=== PATIENT | female | born 1985 | race Caucasian/White ===

== ENCOUNTER 2016-05-06 09:49 | Emergency (ER) | payer MEDICAID ==
[~2016-05-06] VITALS: Ht 160 cm; Wt 100.0 kg
[~2016-05-06 09:49] MED LIST: SULF-154 PO; Z.0.NO CURRENT MEDS
[2016-05-06 09:51] VITALS: BP 124/78; PULSE 76; RESP 20; TEMP 97.6; O2SAT 97
--- NOTE | 2016-05-06 11:27 | PD ---
HPI Chief Complaint: Back/ Neck Pain or Injury Time Seen by Provider: 11:27 Travel History International Travel<30 days: No Contact w/Intl Traveler<30days: No Traveled to known affect area: No History of Present Illness HPI Interpretation services utilized. 31 year old female with no significant medical history, presents to emergency department for evaluation of lower right sided abdominal pain radiating into her suprapubic area. She is also having right lower back pain that radiates into her right leg.. She denies any injury. Denies any saddle paresthesia, loss of bowel or bladder, lower extremely weakness. No recent illnesses, fever , or chills. Patient's last menstrual cycle was April 11, 2016. Denies any current vaginal bleeding or discharge. Nausea without vomiting. No chest pain or tightness. No difficulty breathing. No other symptoms to report. PFSH Past Medical History Medical History: Denies Significant Hx Diminished Hearing: No ?: Not LMP: 04/11/16 : 1 Para: 1 Past Surgical History Section: Yes (x 1) Gynecologic Surgery: Yes (C-SEC) Social History Alcohol Use: No Tobacco Use: No Substance Use: No Allergies-Medications (Allergen,Severity, Reaction): Coded Allergies: No Known Allergies (Unverified , 01/17/12) Reported Meds & Prescriptions Reported Meds & Active Scripts Active Ibuprofen 800 Mg Tab 800 Mg PO Q8H PRN Doxycycline Hyclate 100 Mg Tab 100 Mg PO BID 14 Days Flagyl (Metronidazole) 500 Mg Tab 500 Mg PO BID 14 Days Review of Systems Except as stated in HPI: all other systems reviewed are Neg Physical Exam Narrative GENERAL: Well-nourished female patient, ambulatory with a nonantalgic gait, no acute distress SKIN: Warm and dry. HEAD: Atraumatic. Normocephalic. EYES: Pupils equal and round. No scleral icterus. No injection or drainage. ENT: No nasal bleeding or discharge. Mucous membranes pink and moist. NECK: Trachea midline. No JVD. CARDIOVASCULAR: Regular rate and rhythm. No murmur appreciated. RESPIRATORY: No accessory muscle use. Clear to auscultation. Breath sounds equal bilaterally. GASTROINTESTINAL: Abdomen soft, non distended. Suprapubic and RLQ tenderness to palpation. No rebound tenderness. No guarding. Hepatic and splenic margins not palpable. GENITOURINARY: Normal external genitalia without lesions or erythema. Vaginal vault without blood. There is milky white drainage. Cervical os was closed. + cervical motion tenderness. Uterus nontender and nonenlarged. Bilateral adnexa nontender without masses. MUSCULOSKELETAL: No obvious deformities. No clubbing. No cyanosis. No edema. No midline spinal tenderness. Equal strength bilateral lower extremities. Sensation intact distal extremity. NEUROLOGICAL: Awake and alert. No obvious cranial nerve deficits. Motor grossly within normal limits. Normal speech. Data Data Last Documented VS Vital Signs Date Time Temp Pulse Resp B/P Pulse Ox O2 Delivery O2 Flow Rate FiO2 05/06/16 13:00 70 14 118/54 100 Room Air 05/06/16 09:51 97.6 Orders Complete Blood Count With Diff (05/06/16 12:00) Comprehensive Metabolic Panel (05/06/16 12:00) Lipase (05/06/16 12:00) Prothrombin Time / Inr (Pt) (05/06/16 12:00) Act Partial Throm Time (Ptt) (05/06/16 12:00) Urinalysis - C+S If Indicated (05/06/16 12:00) Iv Access Insert/Monitor (05/06/16 12:00) Ecg Monitoring (05/06/16 12:00) Oximetry (05/06/16 12:00) Sodium Chlor 0.9% 1000 Ml Inj (Ns 1000 M (05/06/16 12:00) Sodium Chloride 0.9% Flush (Ns Flush) (05/06/16 12:00) Ed Urine Pregnancytest Poc (05/06/16 12:00) Gc And Chlamydia Pcr (05/06/16 12:00) Wet Prep Profile (05/06/16 12:03) Ct Abd/Pel W Iv Contrast(Rout) (05/06/16 ) Ketorolac Inj (Toradol Inj) (05/06/16 12:30) Sodium Chlor 0.9% 1000 Ml Inj (Ns 1000 M (05/06/16 12:30) Ceftriaxone Inj (Rocephin Inj) (05/06/16 12:30) Azithromycin (Zithromax) (05/06/16 12:30) Iohexol 350 Inj (Omnipaque 350 Inj) (05/06/16 13:47) Labs Laboratory Tests Test 05/06/16 05/06/16 05/06/16 10:44 11:00 12:20 White Blood Count 9.3 TH/MM3 Red Blood Count 4.77 MIL/MM3 Hemoglobin 13.6 GM/DL Hematocrit 40.1 % Mean Corpuscular Volume 84.1 FL Mean Corpuscular Hemoglobin 28.6 PG Mean Corpuscular Hemoglobin 34.0 % Concent Red Cell Distribution Width 13.8 % Platelet Count 243 TH/MM3 Mean Platelet Volume 10.4 FL Neutrophils (%) (Auto) 60.7 % Lymphocytes (%) (Auto) 29.7 % Monocytes (%) (Auto) 6.5 % Eosinophils (%) (Auto) 2.7 % Basophils (%) (Auto) 0.4 % Neutrophils # (Auto) 5.6 TH/MM3 Lymphocytes # (Auto) 2.8 TH/MM3 Monocytes # (Auto) 0.6 TH/MM3 Eosinophils # (Auto) 0.2 TH/MM3 Basophils # (Auto) 0.0 TH/MM3 CBC Comment DIFF FINAL Differential Comment Prothrombin Time 11.5 SEC Prothromb Time International 1.0 RATIO Ratio Activated Partial 28.1 SEC Thromboplast Time Sodium Level 137 MEQ/L Potassium Level 4.0 MEQ/L Chloride Level 105 MEQ/L Carbon Dioxide Level 25.7 MEQ/L Anion Gap 6 MEQ/L Blood Urea Nitrogen 9 MG/DL Creatinine 0.55 MG/DL Estimat Glomerular Filtration 131 ML/MIN Rate Random Glucose 89 MG/DL Calcium Level 8.8 MG/DL Total Bilirubin 0.3 MG/DL Aspartate Amino Transf 24 U/L (AST/SGOT) Alanine Aminotransferase 52 U/L (ALT/SGPT) Alkaline Phosphatase 108 U/L Total Protein 7.9 GM/DL Albumin 3.8 GM/DL Lipase 109 U/L Urine Color YELLOW Urine Turbidity CLOUDY Urine pH 7.0 Urine Specific [place] 1.023 Urine Protein NEG mg/dL Urine Glucose (UA) NEG mg/dL Urine Ketones NEG mg/dL Urine Occult Blood NEG Urine Nitrite NEG Urine Bilirubin NEG Urine Urobilinogen LESS THAN 2.0 MG/DL Urine Leukocyte Esterase TRACE Urine RBC 2 /hpf Urine WBC 4 /hpf Urine Squamous Epithelial 20 /hpf Cells Urine Calcium Oxalate Crystals MANY /hpf Urine Amorphous Sediment MOD Urine Bacteria OCC /hpf Urine Mucus FEW /lpf Microscopic Urinalysis Comment CULT NOT INDICATED Chlamydia trachomatis DNA NOT DETECTED (PCR) Neisseria gonorrhoeae DNA NOT DETECTED (PCR) Clue Cells (Wet Prep) NONE SEEN Vaginal Trichomonas (Wet Prep) NONE SEEN Vaginal Yeast (Wet Prep) NONE SEEN MDM Medical Decision Making Medical Screen Exam Complete: Yes Emergency Medical Condition: Yes Medical Record Reviewed: Yes Differential Diagnosis PID vs STD vs UTI vs Appendicitis vs colitis vs muscle spasm/ strain Narrative Course 31 year old female presents to the ED for evaluation. Interpretation services are utilized. Pt appears well. RLQ and suprapubic tenderness to evaluation. Milky white drainage in vaginal vault with + CMT. Laboratory Tests Test 05/06/16 05/06/16 05/06/16 10:44 11:00 12:20 White Blood Count 9.3 TH/MM3 Red Blood Count 4.77 MIL/MM3 Hemoglobin 13.6 GM/DL Hematocrit 40.1 % Mean Corpuscular Volume 84.1 FL Mean Corpuscular Hemoglobin 28.6 PG Mean Corpuscular Hemoglobin 34.0 % Concent Red Cell Distribution Width 13.8 % Platelet Count 243 TH/MM3 Mean Platelet Volume 10.4 FL Neutrophils (%) (Auto) 60.7 % Lymphocytes (%) (Auto) 29.7 % Monocytes (%) (Auto) 6.5 % Eosinophils (%) (Auto) 2.7 % Basophils (%) (Auto) 0.4 % Neutrophils # (Auto) 5.6 TH/MM3 Lymphocytes # (Auto) 2.8 TH/MM3 Monocytes # (Auto) 0.6 TH/MM3 Eosinophils # (Auto) 0.2 TH/MM3 Basophils # (Auto) 0.0 TH/MM3 CBC Comment DIFF FINAL Differential Comment Prothrombin Time 11.5 SEC Prothromb Time International 1.0 RATIO Ratio Activated Partial 28.1 SEC Thromboplast Time Sodium Level 137 MEQ/L Potassium Level 4.0 MEQ/L Chloride Level 105 MEQ/L Carbon Dioxide Level 25.7 MEQ/L Anion Gap 6 MEQ/L Blood Urea Nitrogen 9 MG/DL Creatinine 0.55 MG/DL Estimat Glomerular Filtration 131 ML/MIN Rate Random Glucose 89 MG/DL Calcium Level 8.8 MG/DL Total Bilirubin 0.3 MG/DL Aspartate Amino Transf 24 U/L (AST/SGOT) Alanine Aminotransferase 52 U/L (ALT/SGPT) Alkaline Phosphatase 108 U/L Total Protein 7.9 GM/DL Albumin 3.8 GM/DL Lipase 109 U/L Urine Color YELLOW Urine Turbidity CLOUDY Urine pH 7.0 Urine Specific [place] 1.023 Urine Protein NEG mg/dL Urine Glucose (UA) NEG mg/dL Urine Ketones NEG mg/dL Urine Occult Blood NEG Urine Nitrite NEG Urine Bilirubin NEG Urine Urobilinogen LESS THAN 2.0 MG/DL Urine Leukocyte Esterase TRACE Urine RBC 2 /hpf Urine WBC 4 /hpf Urine Squamous Epithelial 20 /hpf Cells Urine Calcium Oxalate Crystals MANY /hpf Urine Amorphous Sediment MOD Urine Bacteria OCC /hpf Urine Mucus FEW /lpf Microscopic Urinalysis Comment CULT NOT INDICATED Chlamydia trachomatis DNA NOT DETECTED (PCR) Neisseria gonorrhoeae DNA NOT DETECTED (PCR) Clue Cells (Wet Prep) NONE SEEN Vaginal Trichomonas (Wet Prep) NONE SEEN Vaginal Yeast (Wet Prep) NONE SEEN Last Impressions Abdomen/Pelvis CT 05/06/16 0000 Signed Impressions: Service Date/Time: Friday, May 06, 2016 13:30 - CONCLUSION: Unremarkable exam for patient's age. Harvey Hardy MD Labs and imaging studies are reviewed with my attending physician Dr. Mcdonnell. She has also assessed the pt. GC PCR pending. Pt treated empirically. Will be treated for cervicitis/PID. Discharge instructions provided. Diagnosis Primary Impression: Cervicitis Additional Impressions: PID (acute pelvic inflammatory disease) Low back pain Qualified Code: M54.41 - Bilateral low back pain with right-sided sciatica, unspecified chronicity Referrals: Controls Project Engineer Primary Care Physician Patient Instructions: General Instructions, Pelvic Inflammatory Disease (ED) Additional Instructions: Follow-up with a primary care provider Seek gynecology evaluation Condom prophylaxis is recommended Return immediately with any acute worsening of symptoms Med/Other Pt SpecificInfo: Prescription(s) given Scripts Ibuprofen 800 Mg [id number] Mg PO Q8H PRN (Pain/Inflammation) #30 TAB Ref 0 Prov:Kay Hanson 05/06/16 Doxycycline Hyclate 100 Mg [id number] Mg PO BID 14 Days Prov:Kay Hanson 05/06/16 Metronidazole (Flagyl)500 Mg [id number] Mg PO BID 14 Days Ref 0 Prov:HansonKay DE JESUS 05/06/16 Disposition: 01 DISCHARGE HOME Condition: Stable Kay Hanson May 06, 2016 11:27
[2016-05-06 11:42] VITALS: BP 118/77; PULSE 62; RESP 16; O2SAT 99
[2016-05-06 12:00] VITALS: BP 128/76; PULSE 70; RESP 22; O2SAT 98
[2016-05-06] MEDS ORDERED: SODIUM CHLOR 0.9% 1000 ML INJ 1,000 ML IV SCH (12:00)
[2016-05-06] MEDS ORDERED: SODIUM CHLORIDE 0.9% FLUSH 5 ML FLUSH IVF PRN (12:00)
[2016-05-06 12:04] VITALS: O2SAT 99
[2016-05-06] MEDS ORDERED: cefTRIAXone 250 MG VIAL IM ONE (12:30)
[2016-05-06] MEDS ORDERED: KETOROLAC TROMETHAMINE 30 MG/ML (IVP) VIAL IV PUSH ONE (12:30)
[2016-05-06] MEDS ORDERED: AZITHROMYCIN 250 MG TAB PO ONE (12:30)
[2016-05-06] MEDS ORDERED: SODIUM CHLOR 0.9% 1000 ML INJ 1,000 ML IV ONE (12:30)
[2016-05-06 12:44] LABS: AUTOMATED NEUTROPHIL # 5.6 TH/MM3 (1.8-7.7); BASOPHIL % 0.4 % (0.0-2.0); EOSINOPHIL # 0.2 TH/MM3 (0-0.4); EOSINOPHIL % 2.7 % (0.0-4.0); HEMATOCRIT 40.1 % (35.0-46.0); HEMO FLAGS DIFF FINAL; LYMPH % 29.7 % (9.0-44.0); LYMPHOCYTE # 2.8 TH/MM3 (1.0-4.8); MEAN CELL VOLUME 84.1 FL (80.0-100.0); MEAN CORPUSCULAR HEMOGLOBIN 28.6 PG (27.0-34.0); MONO % 6.5 % (0.0-8.0); NEUT % 60.7 % (16.0-70.0); PLATELET COUNT 243 TH/MM3 (150-450); RED BLOOD COUNT 4.77 MIL/MM3 (4.00-5.30); RED CELL DISTRIBUTION WIDTH 13.8 % (11.6-17.2); WHITE BLOOD COUNT 9.3 TH/MM3 (4.0-11.0)
[2016-05-06 12:57] LABS: APTT (PATIENT) 28.1 SEC (24.3-30.1); PROTHROMBIN TIME - PATIENT 11.5 SEC (9.8-11.6)
[2016-05-06 12:59] LABS: ANION GAP 6 MEQ/L (5-15); AST (GOT) 24 U/L (15-37); BICARBONATE 25.7 MEQ/L (21.0-32.0); BLOOD UREA NITROGEN 9 MG/DL (7-18); CHLORIDE 105 MEQ/L (98-107); GLOMERULAR FILTRATION RATE 131 ML/MIN (>89); SODIUM (NA) 137 MEQ/L (136-145)
[2016-05-06 13:00] VITALS: BP 118/54; PULSE 70; RESP 14; O2SAT 100
[2016-05-06 13:01] LABS: BACTERIA, URINE OCC /hpf; BLOOD, URINE NEG (NEG); CALCIUM OXALATE CRYSTALS,URINE MANY /hpf; GLUCOSE,URINE NEG (NEG); KETONE, URINE NEG (NEG); MUCUS URINE FEW /lpf (OCC); NITRITE,URINE NEG (NEG); SQUAMOUS EPITHELIAL CELL URINE 20 /hpf (0-5); URINE COLOR YELLOW (YELLW/STRAW)
[2016-05-06 13:02] LABS: ALKALINE PHOSPHATASE 108 U/L (45-117); ALT (GPT) 52 U/L (10-53); TOTAL BILIRUBIN ADULT 0.3 MG/DL (0.2-1.0)
[2016-05-06 13:02] LABS: COMMENT (UR) CULT NOT INDICATED; CULTURE IF INDICATED CULT NOT INDICATED
[2016-05-06] MEDS ORDERED: IOHEXOL 350 MG/ML 10 ML VIAL (for RAD DIAG) IV ONE (13:47)
--- NOTE | 2016-05-06 13:59 | RADRPT ---
EXAM DATE/TIME: 05/06/2016 13:30 [facility] COMPARISON: No previous studies available for comparison. INDICATIONS : Abdomen pain. IV CONTRAST: 90 cc Omnipaque 350 (iohexol) IV ORAL CONTRAST: No oral contrast ingested. RADIATION DOSE: 11.37 CTDIvol (mGy) MEDICAL HISTORY : None SURGICAL HISTORY : None. ENCOUNTER: Initial ACUITY: 1 day PAIN SCALE: 5/10 LOCATION: Bilateral abdomen. TECHNIQUE: Volumetric scanning of the abdomen and pelvis was performed. Using automated exposure control and ad justment of the mA and/or kV according to patient size, radiation dose was kept as low as reasonably achievable to obtain optimal diagnostic quality images. FINDINGS: LOWER LUNGS: The visualized lower lungs are clear. LIVER: Homogeneous density without lesion. There is no dilation of the biliary tree. No calcified gallston es. SPLEEN: Normal size without lesion. PANCREAS: Within normal limits. KIDNEYS: Normal in size and shape. There is no mass, stone or hydronephrosis. ADRENAL GLANDS: Within normal limits. VASCULAR: There is no aortic aneurysm. BOWEL/MESENTERY: The stomach, small bowel, and colon demonstrate no acute abnormality. There is no free intraperitone al air or fluid. The appendix is unremarkable. There is stool throughout the colon. No inflammatory c hanges are demonstrated. ABDOMINAL WALL: Within normal limits. RETROPERITONEUM: There is no lymphadenopathy. BLADDER: No wall thickening or mass. REPRODUCTIVE: Within normal limits. INGUINAL: There is no lymphadenopathy or hernia. MUSCULOSKELETAL: Within normal limits for patient age. CONCLUSION: Unremarkable exam for patient's age. Harvey Hardy MD on May 06, 2016 at 13:55 Board Certified Radiologist. This report was verified electronically.
[2016-05-06] MEDS ORDERED: DOXY100T PO (14:10)
[2016-05-06] MEDS ORDERED: METR-1 PO (14:10)
[2016-05-06] MEDS ORDERED: IBUP800T23 PO (14:12)
--- NOTE | 2016-05-06 15:10 | PD ---
Physical Exam Date Seen by Provider: May 06, 2016 Time Seen by Provider: 12:30 Narrative I, Dr. Bender, have reviewed the advance practice practitioner's documentation and am in agreement, met with the patient face to face, made the diagnosis, and the medical decision making was done by me. *My assessment and Findings: Patient seen and evaluated with nurse practitioner , please see previous note for further information. Patient is here with lower abdominal pain more right sided. Abdomen is tender to palpation in the right lower quadrant. Pelvic exam is indicative of cervicitis. Pulmonary and heart exam is unremarkable. Cultures were done. IV antibiotics and by mouth antibiotic was given. CT did not reveal any signs of acute intra-abdominal processes otherwise. At this point, patient is released with further by mouth antibiotic and follow-up. Return for any worsening in symptoms as needed. Data Data Last Documented VS Vital Signs Date Time Temp Pulse Resp B/P Pulse Ox O2 Delivery O2 Flow Rate FiO2 05/06/16 12:04 99 Room Air 05/06/16 11:42 62 16 118/77 05/06/16 09:51 97.6 Orders Complete Blood Count With Diff (05/06/16 12:00) Comprehensive Metabolic Panel (05/06/16 12:00) Lipase (05/06/16 12:00) Prothrombin Time / Inr (Pt) (05/06/16 12:00) Act Partial Throm Time (Ptt) (05/06/16 12:00) Urinalysis - C+S If Indicated (05/06/16 12:00) Iv Access Insert/Monitor (05/06/16 12:00) Ecg Monitoring (05/06/16 12:00) Oximetry (05/06/16 12:00) Sodium Chlor 0.9% 1000 Ml Inj (Ns 1000 M (05/06/16 12:00) Sodium Chloride 0.9% Flush (Ns Flush) (05/06/16 12:00) Ed Urine Pregnancytest Poc (05/06/16 12:00) Gc And Chlamydia Pcr (05/06/16 12:00) Wet Prep Profile (05/06/16 12:03) Ct Abd/Pel W Iv Contrast(Rout) (05/06/16 ) Ketorolac Inj (Toradol Inj) (05/06/16 12:30) Sodium Chlor 0.9% 1000 Ml Inj (Ns 1000 M (05/06/16 12:30) Ceftriaxone Inj (Rocephin Inj) (05/06/16 12:30) Azithromycin (Zithromax) (05/06/16 12:30) Iohexol 350 Inj (Omnipaque 350 Inj) (05/06/16 13:47) Labs Laboratory Tests Test 05/06/16 05/06/16 05/06/16 10:44 11:00 12:20 White Blood Count 9.3 TH/MM3 Red Blood Count 4.77 MIL/MM3 Hemoglobin 13.6 GM/DL Hematocrit 40.1 % Mean Corpuscular Volume 84.1 FL Mean Corpuscular Hemoglobin 28.6 PG Mean Corpuscular Hemoglobin 34.0 % Concent Red Cell Distribution Width 13.8 % Platelet Count 243 TH/MM3 Mean Platelet Volume 10.4 FL Neutrophils (%) (Auto) 60.7 % Lymphocytes (%) (Auto) 29.7 % Monocytes (%) (Auto) 6.5 % Eosinophils (%) (Auto) 2.7 % Basophils (%) (Auto) 0.4 % Neutrophils # (Auto) 5.6 TH/MM3 Lymphocytes # (Auto) 2.8 TH/MM3 Monocytes # (Auto) 0.6 TH/MM3 Eosinophils # (Auto) 0.2 TH/MM3 Basophils # (Auto) 0.0 TH/MM3 CBC Comment DIFF FINAL Differential Comment Prothrombin Time 11.5 SEC Prothromb Time International 1.0 RATIO Ratio Activated Partial 28.1 SEC Thromboplast Time Sodium Level 137 MEQ/L Potassium Level 4.0 MEQ/L Chloride Level 105 MEQ/L Carbon Dioxide Level 25.7 MEQ/L Anion Gap 6 MEQ/L Blood Urea Nitrogen 9 MG/DL Creatinine 0.55 MG/DL Estimat Glomerular Filtration 131 ML/MIN Rate Random Glucose 89 MG/DL Calcium Level 8.8 MG/DL Total Bilirubin 0.3 MG/DL Aspartate Amino Transf 24 U/L (AST/SGOT) Alanine Aminotransferase 52 U/L (ALT/SGPT) Alkaline Phosphatase 108 U/L Total Protein 7.9 GM/DL Albumin 3.8 GM/DL Lipase 109 U/L Urine Color YELLOW Urine Turbidity CLOUDY Urine pH 7.0 Urine Specific [place] 1.023 Urine Protein NEG mg/dL Urine Glucose (UA) NEG mg/dL Urine Ketones NEG mg/dL Urine Occult Blood NEG Urine Nitrite NEG Urine Bilirubin NEG Urine Urobilinogen LESS THAN 2.0 MG/DL Urine Leukocyte Esterase TRACE Urine RBC 2 /hpf Urine WBC 4 /hpf Urine Squamous Epithelial 20 /hpf Cells Urine Calcium Oxalate Crystals MANY /hpf Urine Amorphous Sediment MOD Urine Bacteria OCC /hpf Urine Mucus FEW /lpf Microscopic Urinalysis Comment CULT NOT INDICATED Clue Cells (Wet Prep) NONE SEEN Vaginal Trichomonas (Wet Prep) NONE SEEN Vaginal Yeast (Wet Prep) NONE SEEN MDM Medical Record Reviewed: Yes Supervised Visit with MARGA[place]: Yes Diagnosis Primary Impression: Cervicitis Additional Impressions: Low back pain Qualified Code: M54.41 - Bilateral low back pain with right-sided sciatica, unspecified chronicity PID (acute pelvic inflammatory disease) Referrals: Head Of Business Development Primary Care Physician Patient Instructions: General Instructions, Pelvic Inflammatory Disease (ED) Additional Instruction: Follow-up with a primary care provider Seek gynecology evaluation Condom prophylaxis is recommended Return immediately with any acute worsening of symptoms Scripts Ibuprofen 800 Mg [id number] Mg PO Q8H PRN (Pain/Inflammation) #30 TAB Ref 0 Prov:Kay Hanson 05/06/16 Doxycycline Hyclate 100 Mg [id number] Mg PO BID 14 Days Prov:Kay Hanson 05/06/16 Metronidazole (Flagyl)500 Mg [id number] Mg PO BID 14 Days Ref 0 Prov:Kay Hanson 05/06/16 Disposition: 01 DISCHARGE HOME Condition: Stable Jovanna Bender MD May 06, 2016 15:10
[2016-05-06 16:11] LABS: CHLAMYDIA PCR NOT DETECTED (NOT DETECT); NEISSERIA PCR NOT DETECTED (NOT DETECT)
== END 2016-05-06 15:54 | disposition home or self-care (01) ==
LOC: NEPA 09:49
DX: N72 Inflammatory disease of cervix uteri (principal); N73.9 Female pelvic inflammatory disease, unspecified; M54.41 Lumbago with sciatica, right side
CPT/HCPCS: 74177; 80053; 81001; 83690; 84703; 85025; 85610; 85730; 87210; 87491; 87591; 96372; 96374; 99284; J0696; J1885; J7030; Q9967

== ENCOUNTER 2016-11-02 09:20 | Emergency (ER) | payer MEDICAID ==
[~2016-11-02] VITALS: Ht 160 cm; Wt 100.0 kg
[~2016-11-02 09:20] MED LIST changes: +DOXY100T PO; +IBUP800T23 PO; +METR-1 PO; -SULF-154 PO; -Z.0.NO CURRENT MEDS
[2016-11-02 09:22] VITALS: BP 117/69; PULSE 66; RESP 20; TEMP 99.1; O2SAT 100
--- NOTE | 2016-11-02 09:38 | PD ---
HPI Chief Complaint: Pain: Acute or Chronic Time Seen by Provider: 09:37 Travel History International Travel<30 days: No Contact w/Intl Traveler<30days: No Traveled to known affect area: No History of Present Illness HPI 31-year-old female who speaks Upper Sorbian only came to the emergency room for severe pelvic pain that has been going on for past 3 months but worse today. She was very uncomfortable. My encounter with her was via an scada technician on the computer. Pain was mostly in the pelvic area radiating down to her left leg. She said the pain was burning sensation. She seemed uncomfortable. She said she has been nauseous but no vomiting. No history of diarrhea. No history of dysuria. She was in the emergency room about a month ago and was told that her uterus was inflamed. She is sexually active and does have pain during intercourse. No history of vaginal discharge or bleeding. PFSH Past Medical History Narrative Medical List of her past medical, surgical, social and family history is reviewed from the nursing note. Diminished Hearing: No ?: Unknown LMP: 10-17-16 : 1 Para: 1 Past Surgical History Section: Yes (x 1) Gynecologic Surgery: Yes (C-SEC) Social History Alcohol Use: No Tobacco Use: No Substance Use: No Allergies-Medications (Allergen,Severity, Reaction): Coded Allergies: No Known Allergies (Unverified , 11/02/16) Comments No known drug allergies. Reported Meds & Prescriptions Reported Meds & Active Scripts Active Flexeril (Cyclobenzaprine HCl) 5 Mg Tab 5 Mg PO TID Ibuprofen 800 Mg Tab 800 Mg PO Q8H PRN Ibuprofen 800 Mg Tab 800 Mg PO Q8H PRN Narrative Medication List of her home medications reviewed from the nursing note. Review of Systems Except as stated in HPI: all other systems reviewed are Neg Physical Exam Narrative GENERAL: Awake, alert, moderate discomfort, obese SKIN: Focused skin assessment warm/dry. HEAD: Atraumatic. Normocephalic. EYES: Pupils equal and round. No scleral icterus. No injection or drainage. ENT: No nasal bleeding or discharge. Mucous membranes pink and moist. NECK: Trachea midline. No JVD. CARDIOVASCULAR: Regular rate and rhythm. No murmur appreciated. RESPIRATORY: No accessory muscle use. Clear to auscultation. Breath sounds equal bilaterally. GASTROINTESTINAL: Abdomen soft, non-tender, nondistended. Hepatic and splenic margins not palpable. MUSCULOSKELETAL: No obvious deformities. No clubbing. No cyanosis. No edema. NEUROLOGICAL: Awake and alert. No obvious cranial nerve deficits. Motor grossly within normal limits. Normal speech. PSYCHIATRIC: Appropriate mood and affect; insight and judgment normal. Data Data Last Documented VS Vital Signs Date Time Temp Pulse Resp B/P Pulse Ox O2 Delivery O2 Flow Rate FiO2 11/02/16 13:40 77 18 129/63 96 11/02/16 12:00 Room Air 11/02/16 09:22 99.1 Orders Beta Hcg (Quant/Titer) (11/02/16 09:57) Complete Blood Count With Diff (11/02/16 09:57) Comprehensive Metabolic Panel (11/02/16 09:57) Lipase (11/02/16 09:57) Urinalysis - C+S If Indicated (11/02/16 09:57) Ct Abd/Pel W/O Iv Contrast (11/02/16 09:57) Iv Access Insert/Monitor (11/02/16 09:57) Ecg Monitoring (11/02/16 09:57) Oximetry (11/02/16 09:57) Morphine Inj (Morphine Inj) (11/02/16 10:00) Ondansetron Inj (Zofran Inj) (11/02/16 10:00) Sodium Chlor 0.9% 1000 Ml Inj (Ns 1000 M (11/02/16 09:57) Sodium Chloride 0.9% Flush (Ns Flush) (11/02/16 10:00) Ketorolac Inj (Toradol Inj) (11/02/16 10:00) Morphine Inj (Morphine Inj) (11/02/16 12:15) Orphenadrine Inj (Norflex Inj) (11/02/16 13:00) Labs Laboratory Tests Test 11/02/16 11/02/16 10:07 11:15 White Blood Count 9.6 TH/MM3 Red Blood Count 4.81 MIL/MM3 Hemoglobin 13.5 GM/DL Hematocrit 41.4 % Mean Corpuscular Volume 86.1 FL Mean Corpuscular Hemoglobin 28.0 PG Mean Corpuscular Hemoglobin 32.5 % Concent Red Cell Distribution Width 14.7 % Platelet Count 228 TH/MM3 Mean Platelet Volume 9.5 FL Neutrophils (%) (Auto) 62.5 % Lymphocytes (%) (Auto) 27.2 % Monocytes (%) (Auto) 5.9 % Eosinophils (%) (Auto) 3.7 % Basophils (%) (Auto) 0.7 % Neutrophils # (Auto) 6.0 TH/MM3 Lymphocytes # (Auto) 2.6 TH/MM3 Monocytes # (Auto) 0.6 TH/MM3 Eosinophils # (Auto) 0.4 TH/MM3 Basophils # (Auto) 0.1 TH/MM3 CBC Comment DIFF FINAL Differential Comment Sodium Level 140 MEQ/L Potassium Level 4.2 MEQ/L Chloride Level 108 MEQ/L Carbon Dioxide Level 25.9 MEQ/L Anion Gap 6 MEQ/L Blood Urea Nitrogen 7 MG/DL Creatinine 0.44 MG/DL Estimat Glomerular Filtration 169 ML/MIN Rate Random Glucose 104 MG/DL Calcium Level 8.5 MG/DL Total Bilirubin 0.2 MG/DL Aspartate Amino Transf 35 U/L (AST/SGOT) Alanine Aminotransferase 52 U/L (ALT/SGPT) Alkaline Phosphatase 88 U/L Total Protein 7.1 GM/DL Albumin 3.5 GM/DL Lipase 79 U/L Human Chorionic Gonadotropin, LESS THAN 1 Quant MIU/ML Urine Color YELLOW Urine Turbidity CLEAR Urine pH 6.0 Urine Specific [place] 1.021 Urine Protein NEG mg/dL Urine Glucose (UA) NEG mg/dL Urine Ketones NEG mg/dL Urine Occult Blood NEG Urine Nitrite NEG Urine Bilirubin NEG Urine Urobilinogen LESS THAN 2.0 MG/DL Urine Leukocyte Esterase NEG Urine RBC LESS THAN 1 /hpf Urine WBC LESS THAN 1 /hpf Urine Squamous Epithelial 1 /hpf Cells Urine Mucus FEW /lpf Microscopic Urinalysis Comment CULT NOT INDICATED MDM Medical Decision Making Medical Screen Exam Complete: Yes Emergency Medical Condition: Yes Medical Record Reviewed: Yes Differential Diagnosis UTI, PID, diverticulitis, lumbar radiculopathy Narrative Course 12:07 PM blood test and CAT scan is within normal limits. Patient was initially medicated for her pain. She told the nurse that the pain is coming back and I have ordered some more pain medicine. I'll be performing a pelvic exam at this point given her discomfort in the pelvic area that she has been explaining. If that is negative patient will be discharged home. Even with the scada technician it did not sound like patient was a very good historian since her answers were not very specific imprecise. There is a chance that this pain could be a lumbar radiculopathy. 12:47 PM I went to do the pelvic exam and at this point patient said that her pelvic pain was better her left leg was hurting. It was a burning kind of pain and she still seemed very uncomfortable. She was unable to flex her leg too much either at the hip or the knee joint. I was getting again the history from the friend who speaks Z[place]ian and was doing the interpretation. They live an hour away and they always come to [place] for all their medical care. Her primary care is close to where she lives. However I was surprised to hear that she did not mention this condition to her primary care which has been going on for 3 months. I let her know about all her test results being negative. At this point I asked her to roll to her right side and examined her spine. There was no point tenderness. She had difficulty doing this because of the pain. But the friend also told me that her drove her to the hospital and she was able to get in and get out of the car and walk even though with some difficulty. At this point I think this is more of a lumbar radiculopathy. I have ordered an IM Norflex. I'll discharge her home. I do not think it's a PID and I have canceled the test. I have asked her through her friend to see her primary care and get an outpatient MRI of her back. Procedures EKG Prior to Arrival: No Diagnosis Primary Impression: Lumbar radiculopathy Referrals: Primary Care Physician Additional Instructions: Please follow-up with your primary care and discuss with him or her regarding this chronic issue. They need to order an outpatient lumbar MRI to check for any pinched nerve. Take the medication as per the prescription direction. Med/Other Pt SpecificInfo: Prescription(s) given Scripts Cyclobenzaprine (Flexeril)5 Mg Tab5 Mg PO TID #21 TAB Ref 0 Prov:Jean-Pierre Avilez MD 11/02/16 Ibuprofen 800 Mg [id number] Mg PO Q8H PRN (PAIN SCALE 1 TO 6) #30 TAB Ref 0 Prov:Jean-Pierre Avilez MD 11/02/16 Disposition: 01 DISCHARGE HOME Condition: Stable Jean-Pierre Avilez MD Nov 02, 2016 09:38
[2016-11-02] MEDS ORDERED: SODIUM CHLOR 0.9% 1000 ML INJ 1,000 ML IV SCH (09:57)
[2016-11-02] MEDS ORDERED: ONDANSETRON HCL 4 MG/2 ML VIAL IVP ONE (10:00)
[2016-11-02] MEDS ORDERED: KETOROLAC TROMETHAMINE 30 MG/ML (IVP) VIAL IVP ONE (10:00)
[2016-11-02] MEDS ORDERED: SODIUM CHLORIDE 0.9% FLUSH 10 ML FLUSH IV FLUSH PRN (10:00)
[2016-11-02] MEDS ORDERED: MORPHINE SULFATE 4 MG/ML INJ IV PUSH ONE ×2 (10:00→12:15)
[2016-11-02 10:08] VITALS: O2SAT 98
[2016-11-02 10:47] LABS: BASOPHIL # 0.1 TH/MM3 (0-0.2); BASOPHIL % 0.7 % (0.0-2.0); EOSINOPHIL # 0.4 TH/MM3 (0-0.4); EOSINOPHIL % 3.7 % (0.0-4.0); HEMATOCRIT 41.4 % (35.0-46.0); HEMO FLAGS DIFF FINAL; LYMPH % 27.2 % (9.0-44.0); LYMPHOCYTE # 2.6 TH/MM3 (1.0-4.8); MEAN CELL VOLUME 86.1 FL (80.0-100.0); MEAN CORPUSCULAR HGB CONC 32.5 % (32.0-36.0); MONO % 5.9 % (0.0-8.0); NEUT % 62.5 % (16.0-70.0); PLATELET COUNT 228 TH/MM3 (150-450); RED BLOOD COUNT 4.81 MIL/MM3 (4.00-5.30); RED CELL DISTRIBUTION WIDTH 14.7 % (11.6-17.2); WHITE BLOOD COUNT 9.6 TH/MM3 (4.0-11.0)
[2016-11-02 10:51] LABS: ANION GAP 6 MEQ/L (5-15); AST (GOT) 35 U/L (15-37); BICARBONATE 25.9 MEQ/L (21.0-32.0); BLOOD UREA NITROGEN 7 MG/DL (7-18); CHLORIDE 108 MEQ/L (98-107); GLOMERULAR FILTRATION RATE 169 ML/MIN (>89); POTASSIUM 4.2 MEQ/L (3.5-5.1); SODIUM (NA) 140 MEQ/L (136-145)
[2016-11-02 10:55] LABS: ALKALINE PHOSPHATASE 88 U/L (45-117); ALT (GPT) 52 U/L (10-53); BETA HCG QUANT LESS THAN 1 MIU/ML (0-5); TOTAL BILIRUBIN ADULT 0.2 MG/DL (0.2-1.0)
[2016-11-02 11:32] LABS: BLOOD, URINE NEG (NEG); COMMENT (UR) CULT NOT INDICATED; CULTURE IF INDICATED CULT NOT INDICATED; GLUCOSE,URINE NEG (NEG); KETONE, URINE NEG (NEG); MUCUS URINE FEW /lpf (OCC); NITRITE,URINE NEG (NEG); SQUAMOUS EPITHELIAL CELL URINE 1 /hpf (0-5); URINE COLOR YELLOW (YELLW/STRAW)
--- NOTE | 2016-11-02 11:59 | RADRPT ---
EXAM DATE/TIME: 11/02/2016 11:38 [facility] COMPARISON: CT ABDOMEN & PELVIS W CONTRAST, May 06, 2016, 13:30. INDICATIONS : Right leg pain that migrates to abdomen/pelvis ORAL CONTRAST: No oral contrast ingested. RADIATION DOSE: 16.86 CTDIvol (mGy) MEDICAL HISTORY : None SURGICAL HISTORY : None. ENCOUNTER: Initial ACUITY: 1 day PAIN SCALE: 5/10 LOCATION: Right lower quadrant TECHNIQUE: Volumetric scanning of the abdomen and pelvis was performed. Using automated exposure control and adjustment of the mA and/or kV according to patient size, radiation dose was kept as low as reasonably achievable to obtain optimal diagnostic quality images. DICOM format image data is av ailable electronically for review and comparison. FINDINGS: CT Abdomen: The spleen, pancreas, kidneys, adrenals are unremarkable. There is no evidence for any ap preciable pathological adenopathy, free fluid, or bowel obstruction. The liver is fatty without foca l lesions or technique. Multiple small mesenteric lymph nodes are present benign in appearance and no t significantly changed. There is an approximate 6 mm nodule left lower lobe laterally not significan tly changed since the prior examination probably scar with slight linear densities surrounding it. CT pelvis: There is no evidence for mass, abscess formation, or any significant adenopathy within the pelvis. There is a tiny 4-5 mm bone island left symphysis pubis. CONCLUSION: Fatty liver and nodular density left lung base not changed most likely scar. Kyle Garcia MD on November 02, 2016 at 11:54 Board Certified Radiologist. This report was verified electronically.
[2016-11-02 12:00] VITALS: BP 123/65; PULSE 61; RESP 19; O2SAT 98
[2016-11-02] MEDS ORDERED: IBUP800T23 PO (12:53)
[2016-11-02] MEDS ORDERED: CYCL5TAB PO (12:53)
[2016-11-02] MEDS ORDERED: ORPHENADRINE INJ 60 MG/2 ML AMP IM ONE (13:00)
[2016-11-02 13:40] VITALS: BP 129/63
== END 2016-11-02 13:52 | disposition home or self-care (01) ==
LOC: NEPD 09:20
DX: M54.16 Radiculopathy, lumbar region (principal)
CPT/HCPCS: 74176; 80053; 81001; 83690; 84702; 85025; 96361; 96374; 96375; 96376; 99285; J1885; J2270; J2360; J2405; J7030

== ENCOUNTER 2016-11-06 13:45 | Emergency (ER) | payer MEDICAID ==
[~2016-11-06 13:45] MED LIST changes: +CYCL5TAB PO; -DOXY100T PO; -METR-1 PO
[2016-11-06 14:37] VITALS: BP 127/74; PULSE 100; RESP 17; TEMP 98.1; O2SAT 99
[2016-11-06] MEDS ORDERED: ORPHENADRINE INJ 60 MG/2 ML AMP IV ONE (14:45)
[2016-11-06] MEDS ORDERED: methylPREDNISolone SOD SUCC 125 MG/2 ML VIAL IV PUSH ONE (14:45)
[2016-11-06] MEDS ORDERED: KETOROLAC TROMETHAMINE 30 MG/ML (IVP) VIAL IV PUSH ONE (14:45)
--- NOTE | 2016-11-06 15:03 | PD ---
HPI Chief Complaint: Pain: Acute or Chronic Time Seen by Provider: 14:59 Travel History International Travel<30 days: No Contact w/Intl Traveler<30days: No Traveled to known affect area: No History of Present Illness HPI Patient is a 31-year-old Azeri-speaking female presenting to the emergency department for evaluation of left lower extremity pain and swelling. Patient was sent by her primary care provider to rule out DVT. RN at bedside and is able to interpret, friend is also at bedside and is able to interpret. Patient declines formal interpretation services. She states the pain is a 10 out of 10 , she reports compliance with previously prescribed ibuprofen and muscle relaxer. She denies any injury or trauma, she denies any weakness in her extremities, bladder or bowel incontinence, saddle paresthesia. She reports low back pain that radiates down causing a burning feeling. No alleviating factors, pain is exacerbated with movement. Patient has no history of IV drug use. PFSH Past Medical History Medical History: Denies Significant Hx Diminished Hearing: No ?: Not LMP: October 21 : 1 Para: 1 Past Surgical History Section: Yes (x 1) Social History Alcohol Use: No Tobacco Use: No Substance Use: No Allergies-Medications (Allergen,Severity, Reaction): Coded Allergies: No Known Allergies (Unverified , 11/06/16) Reported Meds & Prescriptions Reported Meds & Active Scripts Active Flexeril (Cyclobenzaprine HCl) 5 Mg Tab 5 Mg PO TID Ibuprofen 800 Mg Tab 800 Mg PO Q8H PRN Review of Systems Except as stated in HPI: all other systems reviewed are Neg Musculoskeletal: Positive: Myalgias, Cramping, Pain Neurologic: Positive: Sensory Disturbance, No: Weakness, Focal Abnormalities Physical Exam Narrative GENERAL: Well-developed, well-nourished, alert female. Appears older than stated age. SKIN: Warm and dry. HEAD: Atraumatic. Normocephalic. EYES: Pupils equal and round. No scleral icterus. No injection or drainage. ENT: No nasal bleeding or discharge. Mucous membranes pink and moist. NECK: Trachea midline. No JVD. CARDIOVASCULAR: Regular rate and rhythm. RESPIRATORY: No accessory muscle use. Clear to auscultation. Breath sounds equal bilaterally. GASTROINTESTINAL: Abdomen soft, non-tender, nondistended. Hepatic and splenic margins not palpable. Positive bowel sounds, no rebound, no guarding. MUSCULOSKELETAL: Extremities without clubbing, cyanosis. Trace edema to lateral aspect of left ankle. No obvious deformities. Positive Homans sign on the left. No erythema noted. Tenderness to palpation over left SI joint. NEUROLOGICAL: Awake and alert. No obvious cranial nerve deficits. Motor grossly within normal limits. Five out of 5 muscle strength in the arms and legs. Normal speech. PSYCHIATRIC: Appropriate mood and affect; insight and judgment normal. Data Data Last Documented VS Vital Signs Date Time Temp Pulse Resp B/P Pulse Ox O2 Delivery O2 Flow Rate FiO2 11/06/16 14:37 98.1 100 17 127/74 99 Room Air Orders Us Leg Venous Doppler (11/06/16 ) Iv Access Insert/Monitor (11/06/16 14:44) Ketorolac Inj (Toradol Inj) (11/06/16 14:45) Orphenadrine Inj (Norflex Inj) (11/06/16 14:45) Methylprednisolone So Succ Inj (Solumedr (11/06/16 14:45) MDM Medical Decision Making Medical Screen Exam Complete: Yes Emergency Medical Condition: Yes Medical Record Reviewed: Yes Interpretation(s) Last Impressions Lower Extremity Ultrasound 11/06/16 0000 Signed Impressions: Service Date/Time: Sunday, November 06, 2016 14:56 - CONCLUSION: 1. No sonographic evidence for left lower extremity DVT. Rafael Sherwood MD Vital Signs Date Time Temp Pulse Resp B/P Pulse Ox O2 Delivery O2 Flow Rate FiO2 11/06/16 14:37 98.1 100 17 127/74 99 Room Air 11/06/16 14:33 76 18 Differential Diagnosis Radiculopathy versus sciatica versus DVT versus spasm versus Narrative Course Patient is a 31-year-old female presenting on the advice of her primary doctor to rule out DVT. Patient was seen and evaluated on November 02, 2016 in the emergency department. She had a full workup at that time which was negative. It was felt that her symptoms were likely related to a lumbar radiculopathy. She was prescribed ibuprofen and a muscle relaxer which she reports compliance with. There is tenderness noted over left SI joint, there is also tenderness/ positive Homans to the left calf however there is no significant edema or erythema noted. Patient is not on any oral contraception pills, there is been no recent travel. DVT seems less likely of her ultrasound is ordered and pending. Ultrasound left lower extremity is negative for DVT. Patient was reassessed, she reports mild improvement in her pain after medication administration. Patient will be discharged home with a prescription for steroids and gabapentin. She is encouraged to follow back up with her primary doctor. She was encouraged to avoid bed rest, she was encouraged to continue range of motion exercises, apply warm moist heat to affected area. She was encouraged to return to emergency department immediately for any new or worsening symptoms. Patient and friend verbalized understanding of instructions. Patient is stable for discharge. Diagnosis Primary Impression: Lumbar radiculopathy Additional Impression: Sciatica Qualified Code: M54.32 - Sciatica of left side Referrals: Primary Care Physician 2 days Patient Instructions: General Instructions, Lumbar Radiculopathy (GEN), Sciatica (ED) Additional Instructions: Avoid bed rest, apply warm moist heat to affected area, continue range of motion exercises, avoid exacerbating activities Follow-up with your primary doctor Take medications as directed Return to emergency department for any new or worsening symptoms Med/Other Pt SpecificInfo: Prescription(s) given Scripts Gabapentin 100 Mg [id number] Mg PO TID PRN (PAIN SCALE 1 TO 10) 5 Days Ref 0 Prov:Marcella Carpio 11/06/16 Prednisone 50 Mg Tab50 Mg PO DAILY 5 Days Ref 0 Prov:Marcella Carpio 11/06/16 Disposition: 01 DISCHARGE HOME Condition: Stable Marcella Carpio Nov 06, 2016 15:03
--- NOTE | 2016-11-06 15:24 | RADRPT ---
EXAM DATE/TIME: 11/06/2016 14:56 [facility] COMPARISON: No previous studies available for comparison. INDICATIONS : Left leg pain. MEDICAL HISTORY : Lef leg pain. SURGICAL HISTORY : section. ENCOUNTER: Initial ACUITY: 1 day PAIN SCORE: 5/10 LOCATION: Left leg. TECHNIQUE: Venous ultrasound of the leg was performed from the inguinal ligament to the proximal calf. Real-leonard e, color Doppler and spectral tracing, compression and augmentation techniques were used. FINDINGS: There is normal compressibility of the deep venous system from the inguinal region to the proximal ca lf. No echogenic clot is seen in the lumen of the common femoral, femoral, popliteal, and posterior tibial veins. There is a normal response of the venous system to proximal and distal augmentation an d respiration. CONCLUSION: 1. No sonographic evidence for left lower extremity DVT. Rafael Sherwood MD on November 06, 2016 at 15:22 Board Certified Radiologist. This report was verified electronically.
[2016-11-06 15:51] VITALS: RESP 16
[2016-11-06] MEDS ORDERED: PRED50 PO (15:56)
[2016-11-06] MEDS ORDERED: GABA100C4 PO (15:56)
[2016-11-06 16:05] VITALS: BP 122/81; TEMP 97.8
== END 2016-11-06 16:05 | disposition home or self-care (01) ==
LOC: NEPE 13:45
DX: M54.16 Radiculopathy, lumbar region (principal); M54.32 Sciatica, left side; R22.42 Localized swelling, mass and lump, left lower limb
CPT/HCPCS: 93971; 96374; 96375; 99285; J1885; J2360; J2930